=== PATIENT | female | born 1950 | race Caucasian/White ===

== ENCOUNTER 2017-06-30 21:25 | Emergency (ER) | payer MEDICARE ==
[~2017-06-30] VITALS: Ht 170.2 cm; Wt 71.7 kg
[2017-06-30] MEDS ORDERED: Advair Hfa 230-12 GM (21:50)
[2017-06-30] MEDS ORDERED: HYDR1TAB94 (21:50)
[2017-06-30] MEDS ORDERED: ALBU2.5V5 NEB (21:51)
[2017-06-30] MEDS ORDERED: BIOTIN-D1 GM (21:51)
[2017-06-30] MEDS ORDERED: ATOR20 PO (21:51)
[2017-06-30] MEDS ORDERED: Calcium Citrat250 MG PO (21:52)
[2017-06-30] MEDS ORDERED: FURO40 PO (21:53)
[2017-06-30] MEDS ORDERED: GABA600 PO (21:53)
[2017-06-30] MEDS ORDERED: FISH OIL 1,2001 EAC1 PO (21:53)
[2017-06-30] MEDS ORDERED: Estrace Vagin42.5 GM PV (21:53)
[2017-06-30] MEDS ORDERED: TIOT18 INH (21:54)
[2017-06-30] MEDS ORDERED: Omeprazole20 M1 (21:54)
[2017-06-30] MEDS ORDERED: SERT100 PO (21:54)
[2017-06-30] MEDS ORDERED: TOPI50 PO (21:55)
[2017-06-30] MEDS ORDERED: SUCR1 PO (21:55)
[2017-06-30] MEDS ORDERED: VITAMIN B122500 MC1 PO (21:56)
== END 2017-07-01 00:04 | disposition home or self-care (01) ==
LOC: ER 21:25
DX: M25.552 Pain in left hip (principal); G89.29 Other chronic pain; J44.9 Chronic obstructive pulmonary disease, unspecified; F17.210 Nicotine dependence, cigarettes, uncomplicated; Z88.1 Allergy status to other antibiotic agents; Z79.899 Other long term (current) drug therapy
CPT/HCPCS: 73502; 96372; 99284; J1170